=== PATIENT | female | born 1960 | race Caucasian/White ===

== ENCOUNTER 2017-06-08 13:15 | Emergency (ER) | payer BC ==
[2017-06-08 14:11] VITALS: BP 155/82
--- NOTE | 2017-06-08 14:25 | UC ---
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 - History of Current Complaint Chief Complaint: UCUpperExtremity Stated Complaint: NECK PAIN Time Seen by Provider: 06/08/17 14:02 Hx Obtained From: Patient ?: No Onset/Duration Of Injury/Symptoms: Weeks Mechanism Of Injury: No Known Trauma Timing: Constant Onset/Duration: Still Present Severity: Moderate Pain Intensity: 7 Pain Scale Used: 0-10 Numeric Location: Discrete At: - right posterior shoulder just above scapula Character: Aching, Spasmotic Aggravating Factors: Position Alleviating Factors: Nothing Associated Signs & Symptoms: Positive: Negative Related History: Occupational Injury - 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 - Allergies/Home Medications Allergies/Adverse Reactions: Allergies Allergy/AdvReac Type Severity Reaction Status Date / Time No Known Allergies Allergy Verified 06/08/17 14:04 Home Medications: Home Medications Aspirin Low Dose CHEW TAB* [Aspirin Low Dose TAB*] 81 mg PO DAILY 06/08/17 [ History Confirmed 06/08/17] Atorvastatin* [Lipitor 20 MG*] 20 mg PO QPM 06/08/17 [History Confirmed 06/08/17 ] DULoxetine DR CAP* [Cymbalta CAP*] 90 mg PO DAILY 06/08/17 [History Confirmed ] Tolterodine (NF) [Detrol (NF)] 4 mg PO DAILY 06/08/17 [History Confirmed ] amLODIPine TAB* [Norvasc 5 mg TAB*] 2.5 mg PO DAILY 06/08/17 [History Confirmed 06/08/17] PMH/Surg Hx/FS Hx/Imm Hx Previously Healthy: No Endocrine History: Dyslipidemia Cardiovascular History: Hypertension Psychological History: Depression - Surgical History Surgical History: Yes Surgery Procedure, Year, and Place: left knee surgery, right hip replacement - Family History Known Family History: Positive: None - Social History Occupation: Employed Full-time Lives: With Family Alcohol Use: Occasionally Substance Use Type: None Smoking Status (MU): Never Smoked Tobacco Review Of Systems Constitutional: Positive: Negative Skin: Positive: Negative Eyes: Positive: Negative ENT: Positive: Negative Respiratory: Positive: Negative Cardiovascular: Positive: Negative Gastrointestinal: Positive: Negative Genitourinary: Positive: Negative Musculoskeletal: Positive: Myalgia - above right scapula Neurological: Positive: Negative Psychological: Positive: Negative All Other Systems Reviewed And Are Negative: Yes Physical Exam Triage Information Reviewed: Yes Appearance: Well-Appearing, Pain Distress - mild/moderate, Obese Vital Signs: Initial Vital Signs Temp 98.5 F 06/08/17 14:07 Pulse 93 06/08/17 14:07 Resp 20 06/08/17 14:07 BP 155/82 06/08/17 14:07 Pulse Ox 99 06/08/17 14:07 Vital Signs Reviewed: Yes Eye Exam: Normal Eyes: Positive: Conjunctiva Clear ENT Exam: Normal ENT: Positive: Normal ENT inspection, Hearing grossly normal, TMs normal. Negative: Nasal congestion, Nasal drainage, Trismus, Muffled/hoarse voice Dental Exam: Normal Neck exam: Normal Neck: Positive: Supple, Nontender, No Lymphadenopathy Respiratory Exam: Normal Respiratory: Positive: Chest non-tender, Lungs clear, Normal breath sounds, No respiratory distress, No accessory muscle use Cardiovascular Exam: Normal Cardiovascular: Positive: RRR, Brisk Capillary Refill Musculoskeletal Exam: Normal Musculoskeletal: Positive: Strength Intact, ROM Intact, No Edema Neurological Exam: Normal Neurological: Positive: Alert Psychological Exam: Normal Skin Exam: Normal Diagnostics - Radiology No standard instances Xray Interpretation: Positive (See Comments) - mild-moderated degeneration, straightening of cervical spine Radiology Interpretation Completed By: Radiologist Re-Evaluation - Re-Evaluation First Eval Change: Improved - getting pain relief with Toradol Neck Pain Course/Dx - Course Course Of Treatment: Hydrocodone, ibuprofen, tizanadine, follow with chiropractor, follow with pcp - Differential Dx/Diagnosis Provider Diagnoses: Right Trapezuis strain, Hypertension in poor control Discharge - Discharge Plan Condition: Stable Disposition: HOME Prescriptions: Hydrocodone-Acetaminophen [Hydrocodone/Acetaminophen 5-325 mg] 1 tab PO QID #16 tab MDD 4 Ibuprofen TAB* [Motrin TAB* 600 MG] 600 mg PO Q6H PRN #40 tab PRN Reason: mild pain tiZANidine TAB* [Zanaflex TAB*] 2 - 4 mg PO TID #30 tab Patient Education Materials: Osteoarthritis (ED), Hypertension (ED), Muscle Spasm (ED), Neck Pain (ED) Referrals: [facility] [Outside] - 1 Week
[2017-06-08] MEDS ORDERED: Ketorolac INJ* 60 MG/2 ML VIAL IM ONE (14:26)
--- NOTE | 2017-06-08 15:01 | RAD ---
INDICATION: Neck pain. COMPARISON: There are no prior studies available for comparison. TECHNIQUE: 5 views of the cervical spine were obtained including lateral, oblique, AP, open-mouth odontoid views. FINDINGS: C1-C7 are visualized. There is straightening of the cervical spine with loss of the normal cervical lordosis. No fracture is seen. There is mild to moderate this space narrowing and uncinate process spurring at the C4-C5, C5-C6 and C6-C7 levels. Neural foramen appear patent bilaterally. IMPRESSION: 1. STRAIGHTENING OF THE CERVICAL SPINE. 2. 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
== END 2017-06-08 15:45 | disposition home or self-care (01) ==
LOC: EDBD → UCCORT 13:15
DX: S46.811A Strain of other muscles, fascia and tendons at shoulder and upper arm level, right arm, initial encounter (principal); X50.9XXA Other and unspecified overexertion or strenuous movements or postures, initial encounter; Y93.9 Activity, unspecified; Y92.9 Unspecified place or not applicable; Y99.9 Unspecified external cause status
CPT/HCPCS: 72050; 96372; 99202; G0463; J1885

== ENCOUNTER 2018-06-25 12:35 | Emergency (ER) | payer BC ==
[2018-06-25 14:51] VITALS: BP 154/68
--- NOTE | 2018-06-25 15:16 | UC ---
UC General HPI - HPI Summary HPI Summary: pt is c/o a sore throat, L ear ache, headache and sinus congestion for over a week. subjective fever and chills. - History of Current Complaint Chief Complaint: UCGeneralIllness Stated Complaint: EAR COMPLAINT, COUGH, ST Time Seen by Provider: 06/25/18 15:02 Hx Obtained From: Patient Onset/Duration: Gradual Onset Timing: Constant Pain Intensity: 7 Associated Signs & Symptoms: Positive: Fever, Headache. Negative: Cough, Chest Pain - Allergy/Home Medications Allergies/Adverse Reactions: Allergies Allergy/AdvReac Type Severity Reaction Status Date / Time No Known Allergies Allergy Verified 06/25/18 14:44 PMH/Surg Hx/FS Hx/Imm Hx - Additional Past Medical History Additional PMH: BROOKE, coronary spasm Endocrine History: Dyslipidemia Psychological History: Depression - Surgical History Surgical History: Yes Surgery Procedure, Year, and Place: left knee surgery, right hip replacement. left breast lumpectomy - Family History Known Family History: Positive: Other - cva - Social History Occupation: Employed Full-time Alcohol Use: Weekly Substance Use Type: None Smoking Status (MU): Never Smoked Tobacco - Immunization History Vaccination Up to Date: Yes Review of Systems Constitutional: Fever Skin: Negative Eyes: Negative ENT: Sore Throat, Ear Ache, Sinus Congestion, Sinus Pain/Tenderness Respiratory: Negative Cardiovascular: Negative Gastrointestinal: Negative Genitourinary: Negative Motor: Negative Neurovascular: Negative Musculoskeletal: Negative Neurological: Headache Psychological: Negative Is Patient Immunocompromised?: No All Other Systems Reviewed And Are Negative: Yes Physical Exam Triage Information Reviewed: Yes Appearance: Well-Appearing Vital Signs: Initial Vital Signs Temp 97.8 F 06/25/18 14:46 Pulse 93 06/25/18 14:46 Resp 24 06/25/18 14:46 BP 154/68 06/25/18 14:46 Pulse Ox 95 06/25/18 14:46 Vital Signs Reviewed: Yes Eyes: Positive: Conjunctiva Clear ENT: Positive: Pharyngeal erythema, Nasal congestion, TMs normal, Sinus tenderness. Negative: Nasal drainage, Tonsillar exudate, Trismus, Muffled voice , Hoarse voice, Uvula midline Neck: Positive: Supple, Nontender, Enlarged Nodes @ - PERITONSILAR Respiratory: Positive: Lungs clear, Normal breath sounds, No respiratory distress Cardiovascular: Positive: RRR, No Murmur Abdomen Description: Positive: Nontender, No Organomegaly, Soft Bowel Sounds: Positive: Present Musculoskeletal: Positive: ROM Intact Neurological: Positive: Alert Psychological: Positive: Age Appropriate Behavior Skin Exam: Normal Course/Dx - Differential Dx - Multi-Symptom Provider Diagnoses: SINUSITIS, PHARYNGITIS, OTALGIA Discharge - Sign-Out/Discharge Documenting (check all that apply): Patient Departure All imaging exams completed and their final reports reviewed: No Studies - Discharge Plan Condition: Stable Disposition: HOME Prescriptions: Amoxicillin/Clavulanate TAB* [Augmentin TAB 875*] 875 mg PO BID 10 Days #20 tab Patient Education Materials: Pharyngitis (ED), Sinusitis (ED), Earache (ED) Referrals: Aleena Villagomez MD [Primary Care Provider] - 7 Days - Billing Disposition and Condition Condition: STABLE Disposition: Home
== END 2018-06-25 15:22 | disposition home or self-care (01) ==
LOC: UCCORT 12:35
DX: J02.9 Acute pharyngitis, unspecified (principal); J32.9 Chronic sinusitis, unspecified; H92.02 Otalgia, left ear
CPT/HCPCS: 99212; G0463

== ENCOUNTER 2020-04-24 07:30 | Observation (INO) ==
[~2020-04-24 07:30] MED LIST: Buffered Lidocaine 1% SYRIN 1 ml INTRADERM ONE; Famotidine IV 10 MG/ML 2 ml VIAL (20 mg) IV ONE; Lactated Ringers 1000 ml BAG 1,000 ML IV SCH
[2020-04-24] MEDS ORDERED: Clindamycin 900 MG/D5W BAG 900 MG/50 ML BAG IVPB ONE (07:57)
[2020-04-24] MEDS ORDERED: Famotidine IV 10 MG/ML 2 ml VIAL (20 mg) ONE (07:57)
[2020-04-24] MEDS ORDERED: Midazolam 5 mg/5 ml VIAL 1 mg/ml 5 ml VIAL (5 mg) ONE (08:15)
[2020-04-24] MEDS ORDERED: Phenylephrine 40 mcg/mL 10mL (400mcg) SYRINGE ONE (08:16)
[2020-04-24] MEDS ORDERED: Bupivacaine 0.5% SDV PF 30ML VIAL ONE (08:54)
[2020-04-24] MEDS ORDERED: Lidocaine 2% PF 5 ML VIAL ONE (08:54)
[2020-04-24] MEDS ORDERED: ROPIVACAINE 5 MG/ML 30 ML BTL (0.5%) ONE ×2 (08:54→09:21)
[2020-04-24] MEDS ORDERED: Phenylephrine IV 10 MG/ML 1 ml VIAL ONE (10:37)
[2020-04-24] MEDS ORDERED: Propofol 10 MG/ML 20 ML BTL ONE ×3 (10:47→11:41)
[2020-04-24] MEDS ORDERED: Naloxone 0.4 mg VIAL 0.4 mg/ml 1 ml VIAL IV PRN (10:53)
[2020-04-24] MEDS ORDERED: fentaNYL 100 mcg/2 ml 50 MCG/ML VIAL IV PRN (10:53)
[2020-04-24] MEDS ORDERED: Ondansetron 4 mg VIAL 2 MG/ML 2 ml VIAL IV PRN ×2 (10:53→11:11)
[2020-04-24] MEDS ORDERED: HYDROmorphone 1 MG/1 ML SYRINGE IV PRN (10:53)
[2020-04-24] MEDS ORDERED: Magnesium Hydroxide LIQ 30 ML UDC PO PRN (11:11)
[2020-04-24] MEDS ORDERED: diPHENhydraMINE 25 mg TAB PO PRN (11:11)
[2020-04-24] MEDS ORDERED: Morphine 2 MG/ML SYRINGE IV PRN (11:11)
[2020-04-24] MEDS ORDERED: Ondansetron ODT 4 mg TAB 4 MG TAB PO PRN (11:11)
[2020-04-24] MEDS ORDERED: Lactulose 30 ml UDC PO PRN (11:11)
[2020-04-24] MEDS ORDERED: diPHENhydraMINE IV 50 MG/ML 1 ml VIAL (BENADRYL) IV PRN (11:11)
[2020-04-24] MEDS ORDERED: Dextrose 50% Syringe 50 ml 25 GM/50 ML SYRINGE IV PUSH PRN (13:00)
[2020-04-24] MEDS ORDERED: Ondansetron 4 mg VIAL 2 MG/ML 2 ml VIAL ONE (13:05)
[2020-04-24] MEDS: Lactated Ringers 1000 ml BAG 1,000 ML IV SCH (15:08)
[2020-04-24] MEDS: oxyCODONE/Acetamin 5/325 mg TAB PO PRN ×2 (15:41→19:43)
[2020-04-24] MEDS: Clindamycin 600 MG/D5W BAG 600 MG/50 ML BAG IV SCH (18:08)
[2020-04-24] MEDS ORDERED: Metformin ER 750 mg TAB (NF) PO SCH (21:00)
[2020-04-24] MEDS: Magnesium Hydroxide LIQ 30 ML UDC PO SCH (22:45)
[2020-04-25] MEDS: Clindamycin 600 MG/D5W BAG 600 MG/50 ML BAG IV SCH ×2 (02:33→10:41)
[2020-04-25] MEDS: Lactated Ringers 1000 ml BAG 1,000 ML IV SCH (02:37)
[2020-04-25 06:15] LABS: Hematocrit 31 % (35-47); Hemoglobin 10.8 g/dL (12.0-16.0); Mean Platelet Volume 8.2 fL (7.4-10.4); Platelet Count 183 10^3/uL (150-450)
[2020-04-25 07:01] LABS: BUN/Creatinine Ratio 22.8 (8-20); Calcium 8.7 mg/dL (8.6-10.3); EGFR African American 90.1 (>60); EGFR Non-African American 74.5 (>60); Potassium 4.6 mmol/L (3.5-5.0)
[2020-04-25] MEDS: Magnesium Hydroxide LIQ 30 ML UDC PO SCH (08:20)
[2020-04-25] MEDS: oxyCODONE/Acetamin 5/325 mg TAB PO PRN (08:21)
[2020-04-25] MEDS ORDERED: DULoxetine DR 30 mg CAP PO SCH (09:00)
[2020-04-25] MEDS ORDERED: Vitamin THERAPEUTIC TAB PO SCH (09:00)
[2020-04-25] MEDS ORDERED: Lactated Ringers 500 ml BAG 500 ML IV ONE (12:08)
[2020-04-25 15:53] VITALS: BP 118/44
== END 2020-04-25 16:25 | disposition home or self-care (01) ==
LOC: INTOOBSV 07:45 → AA 07:45 → SSU 14:27
PROVIDERS: ADMIT Orthopaedic Surgery Adult Reconstructive Orthopaedic Surgery; ATTEND Orthopaedic Surgery Adult Reconstructive Orthopaedic Surgery

== ENCOUNTER 2023-06-02 08:24 | Observation (INO) ==
[~2023-06-02 08:24] MED LIST changes: -Famotidine IV 10 MG/ML 2 ml VIAL (20 mg) IV ONE; +HYDROmorphone 1 MG/1 ML SYRINGE IV PRN; +Naloxone 0.4 mg VIAL 0.4 mg/ml 1 ml VIAL IV PRN; +Ondansetron 4 mg VIAL 2 MG/ML 2 ml VIAL IV PRN
[2023-06-02] MEDS ORDERED: Bupivacaine 0.5% PF 10 ML SDV VIAL INJ ONE (08:49)
[2023-06-02] MEDS ORDERED: Propofol 10 MG/ML 20 ML BTL ONE ×2 (08:49→13:39)
[2023-06-02] MEDS ORDERED: Midazolam 2 mg/2 ml VIAL 1 mg/ml 2 ml VIAL (2 mg) ONE (08:49)
[2023-06-02] MEDS ORDERED: Propofol 0 MG/0 ML BTL ONE (08:49)
[2023-06-02] MEDS ORDERED: Lidocaine 2% PF 5 ML VIAL ONE (08:49)
[2023-06-02] MEDS ORDERED: Phenylephrine IV 10 MG/ML 1 ml VIAL ONE (08:49)
[2023-06-02] MEDS ORDERED: fentaNYL 100 mcg/2 ml 50 MCG/ML VIAL ONE ×3 (08:49→15:17)
[2023-06-02] MEDS ORDERED: Tranexamic Acid 1 GM/100ML BAG 2,000 MG/200 ML BAG IV ONE (08:51)
[2023-06-02] MEDS ORDERED: Clindamycin 300 MG/D5W BAG 300 MG/50 ML BAG IV ONE (08:51)
[2023-06-02] MEDS ORDERED: Clindamycin 600 MG/NS BAG(*) 600 MG/50 ML BAG ONE (08:51)
[2023-06-02 09:20] LABS: Rapid COVID-19 Molecular Undetected (Undetected)
[2023-06-02] MEDS ORDERED: Scopolamine 1 mg/72hr PATCH ONE (09:20)
[2023-06-02] MEDS ORDERED: Scopolamine 1 mg/72hr PATCH TRANSDERM SCH (10:00)
[2023-06-02] MEDS ORDERED: Rocuronium 50 mg VIAL 10 mg/ml 5 ml VIAL (50 mg) ONE (10:16)
[2023-06-02] MEDS ORDERED: ROPIVACAINE 5 MG/ML 30 ML BTL (0.5%) ONE (10:31)
[2023-06-02] MEDS ORDERED: HYDROmorphone 0.5 MG/0.5 ML SYRINGE ONE (11:28)
[2023-06-02] MEDS ORDERED: Dexamethasone IV 4 MG/ML VIAL 1 ml VIAL ONE (12:01)
[2023-06-02] MEDS ORDERED: Ondansetron 4 mg VIAL 2 MG/ML 2 ml VIAL ONE (12:01)
[2023-06-02] MEDS ORDERED: Lactulose 30 ml UDC PO PRN (12:13)
[2023-06-02] MEDS ORDERED: Ondansetron ODT 4 mg TAB 4 MG TAB PO PRN (12:13)
[2023-06-02] MEDS ORDERED: Morphine 2 MG/ML SYRINGE IV PRN (12:13)
[2023-06-02] MEDS ORDERED: Ondansetron 4 mg VIAL 2 MG/ML 2 ml VIAL IV PRN (12:13)
[2023-06-02] MEDS ORDERED: Magnesium Hydroxide LIQ 30 ML UDC PO PRN (12:13)
[2023-06-02] MEDS: fentaNYL 100 mcg/2 ml 50 MCG/ML VIAL IV PRN ×3 (15:17→16:05)
[2023-06-02] MEDS: Lactated Ringers 1000 ml BAG 1,000 ML IV SCH (18:53)
[2023-06-02] MEDS: Clindamycin 600 MG/NS BAG(*) 600 MG/50 ML BAG IV SCH (20:12)
[2023-06-02] MEDS: Magnesium Hydroxide LIQ 30 ML UDC PO SCH (20:54)
[2023-06-03] MEDS: Clindamycin 600 MG/NS BAG(*) 600 MG/50 ML BAG IV SCH ×2 (03:42→11:30)
[2023-06-03] MEDS: Lactated Ringers 1000 ml BAG 1,000 ML IV SCH (05:14)
[2023-06-03 07:00] LABS: Hematocrit 27.1 % (35-45); Hemoglobin 9.4 g/dL (11.5-14.3); Mean Platelet Volume 7.4 fL (7.5-11.2); Platelet Count 199 10^3/uL (150-450)
[2023-06-03 07:17] LABS: Calcium 8.2 mg/dL (8.6-10.3); Creatinine, Serum 0.76 mg/dL (0.51-0.95); Potassium 3.9 mmol/L (3.5-5.0); eGFR CKD-EPI 88.5 (>60)
[2023-06-03] MEDS: Magnesium Hydroxide LIQ 30 ML UDC PO SCH (08:13)
[2023-06-03] MEDS ORDERED: CMCS: Mirabegron 25 mg ER TAB (NF) PO SCH (09:00)
[2023-06-03] MEDS ORDERED: Vitamin THERAPEUTIC TAB PO SCH (09:00)
[2023-06-03] MEDS ORDERED: DULoxetine DR 60 mg CAP PO SCH (09:00)
[2023-06-03 10:34] VITALS: BP 123/68
== END 2023-06-03 13:20 | disposition home or self-care (01) ==
LOC: AA 08:24 → INTOOBSV 08:24 → SSU 17:54
PROVIDERS: ADMIT Orthopaedic Surgery Adult Reconstructive Orthopaedic Surgery; ATTEND Orthopaedic Surgery Adult Reconstructive Orthopaedic Surgery